=== PATIENT | male | born 1955 | race Caucasian/White ===

== ENCOUNTER 2018-01-25 14:18 | Observation (INO) ==
[2018-01-25] MEDS ORDERED: Naloxone 0.4 MG/ML INJ IVP PRN (17:26)
[2018-01-25] MEDS ORDERED: Acetaminophen 325 MG TABLET PO PRN (17:26)
[2018-01-25] MEDS ORDERED: traMADol 50 MG TABLET PO PRN (17:26)
[2018-01-25] MEDS ORDERED: Dextrose Gel 15 GM/37.5 ML TUBE PO PRN ×2 (17:29)
[2018-01-25] MEDS ORDERED: *HR* Dextrose 50 % in Water (Syg) 50 ML SYRINGE IVP PRN (17:29)
[2018-01-25] MEDS ORDERED: D5% in Water 1,000 ML IVC PRN (17:29)
[2018-01-25] MEDS ORDERED: Nitroglycerin 0.4 MG TAB.SUBL SL PRN (17:30)
--- NOTE | 2018-01-25 17:44 | Internal Med History&Physical ---
Date of Encounter: 01/25/18 Time of Encounter: 17:41 Internal Medicine - H&P: HPI Admitted From: Home Plans for Post Hospital Care: Home History of present illness: Mr. Hendrix is a 62 year old male with Hx of CAD s/p LAD stent placement presented with a 6 day history of left-sided anterior chest pain. Last night it began to radiate into the left axilla and then today to his left arm. He reports that it is not exertional and he cannot identify any exacerbating symptoms. He reports it occasionally is sharp. He has never had pain like this before. He reports that he has not had associated nausea or vomiting, no lightheadedness or sweats but reports profound fatigue and associated shortness of breath. He reports max pain was 7 out of 10 yesterday. Current pain is 3 out of 10. Patient reports he stopped Plavix at the recommendation of his wood car builder 2 months ago. He reports he is diabetic, is treated for high cholesterol, high blood pressure, takes baby aspirin daily. Nonsmoker. Denies history of arrhythmia. Patient sees Dr. Lopez. Had LAD stent placed 03-27-11 at [facility]. Upon arrival, patient has signs were stable. Labs and EKG were unremarkable. Due to his risk factors and the history was CAD, patient will be admitted as observation for further evaluation. Past Med Surg Social Fam HX - Past Medical History Medical history: arthritis, coronary artery disease, CVA, diabetes, GERD, hyperlipidemia, hypertension Additional medical history: neuropathy Psychiatric history: depression - Past Surgical History Surgical History: angioplasty/stent, sinus surgery Additional surgical history: neck surgery, heart stent, eye sx, sinus sx, vasectomy - Social History Smoking Status: Never smoker Smokeless Tobacco Status: No Alcohol use: none Drug use: none - Family History Brother Hx Family Endocrine Disorder: Yes Internal Medicine - H&P: Meds Amlodipine [Norvasc] 5 mg PO DAILY 03/30/15 [History] Gabapentin [Neurontin] 800 mg PO DAILY 03/30/15 [History] Insulin Glargine,Hum.rec.anlog [Lantus Solostar] 35 unit SQ BID 03/30/15 [ History] Metformin HCl [Fortamet] 1,000 mg PO BID 03/30/15 [History] Metoprolol [Lopressor] 12.5 mg PO DAILY 03/30/15 [History] Montelukast [Singulair] 10 mg PO DAILY 03/30/15 [History] Donepezil [Aricept] 10 mg PO HS 08/27/15 [History] BuPROPion XL (24 HR) [Wellbutrin Xl] 150 mg PO DAILY 11/03/15 [History] Ezetimibe [Zetia] 10 mg PO DAILY 11/03/15 [History] Nitroglycerin [Nitrostat] 0.4 mg SL PRN PRN 11/03/15 [History] Pravastatin Sodium [Pravachol] 10 mg PO Q2D 11/03/15 [History] Loratadine [Claritin] 10 mg PO DAILY 11/04/15 [History] Ondansetron ODT [Zofran ODT] 4 mg SL Q6HR PRN #7 tab.rapdis 11/07/15 [Rx] Pantoprazole Sodium [Protonix] 40 mg PO DAILY #28 tablet. 11/07/15 [Rx] Sucralfate [Carafate] 1 gm PO QIDAC #28 tablet 11/07/15 [Rx] Amoxicillin/Clavulanate [Augmentin] 875 mg PO BIDWM #19 tablet 08/11/17 [Rx] Cyclobenzaprine [Flexeril] 10 mg PO TID #9 tablet 01/08/18 [Rx] Aspirin [Lo-Dose Aspirin EC] 81 mg PO DAILY 01/25/18 [History] Clopidogrel [Plavix] 75 mg PO DAILY 01/25/18 [History] Cyanocobalamin (Vitamin B-12) [Vitamin B12] 1,000 mcg PO BID 01/25/18 [History] Donepezil [Aricept] 10 mg PO DAILY 01/25/18 [History] Empagliflozin [Jardiance] 10 mg PO DAILY 01/25/18 [History] Ferrous Sulfate [Iron] 325 mg PO DAILY 01/25/18 [History] Ranitidine HCl [Acid Automotive Title Clerk] 150 mg PO DAILY 01/25/18 [History] Venlafaxine HCl [Venlafaxine HCl ER] 37.5 mg PO DAILY 01/25/18 [History] 3 Allergy/AdvReac Type Severity Reaction Status Date / Time benazepril Allergy Rash Verified 01/08/18 11:58 codeine Allergy Rash Verified 01/08/18 11:58 fenofibrate Allergy Rash Verified 01/08/18 11:58 ropinirole [From Requip] Allergy Rash Verified 01/08/18 11:58 simvastatin [From Zocor] Allergy Rash Verified 01/08/18 11:58 TB serum Allergy See Uncoded 01/08/18 11:58 Comments All Systems PM: A 10-system review of systems was performed and is negative for pertinent findings except as documented above in the HPI. Review of systems: REVIEW OF SYSTEMS: CONSTITUTIONAL: No weight loss, fever, chills, weakness or fatigue. HEENT: Eyes: No visual loss, blurred vision, double vision or yellow sclerae. Ears, Nose, Throat: No hearing loss, sneezing, congestion, runny nose or sore throat. SKIN: No rash or itching. CARDIOVASCULAR: see HPI. RESPIRATORY: No shortness of breath, cough or sputum. GASTROINTESTINAL: No anorexia, nausea, vomiting or diarrhea. No abdominal pain or blood. GENITOURINARY: No dysuria, urgency, or frequency. NEUROLOGICAL: No headache, dizziness, syncope, paralysis, ataxia, numbness or tingling in the extremities. No change in bowel or bladder control. MUSCULOSKELETAL: No muscle, back pain, joint pain or stiffness. HEMATOLOGIC: No anemia, bleeding or bruising. LYMPHATICS: No enlarged nodes. No history of splenectomy. PSYCHIATRIC: No history of depression or anxiety. ENDOCRINOLOGIC: No reports of sweating, cold or heat intolerance. No polyuria or polydipsia. - Constitutional General appearance: Present: A&O X 3, answers questions appropriately Exam: PHYSICAL EXAMINATION: GENERAL APPEARANCE: The patient is alert, oriented and in no acute distress. HEENT: Head is normocephalic. The sinuses are nontender. Pupils are equal and reactive. The nares are patent. Oropharynx clear without lesions. NECK: Supple without lymphadenopathy. HEART: Regular rate and rhythm. LUNGS: No crackles or wheezes are heard. ABDOMEN: Soft, nontender, nondistended with good bowel sounds heard. Inguinal area is normal. EXTREMITIES: Without cyanosis, clubbing or edema. NEUROLOGICAL: Gross nonfocal. SKIN: Warm and dry without any rash. - Assessment and plan (1) Chest pain Current Visit: Yes Status: Acute Assessment and plan: 62-year-old male with past medical history of CAD, status post stent placement, hypertension, hyperlipidemia, diabetes, and a stroke presented with left-sided chest pain. He had 1 stent placed in LAD in 2010. Regularly follow up with cardiology Dr. Lopez. Recent cardiac workup in 2016 including echocardiogram and a stress nuclear test were unremarkable. He was taking both aspirin and the Plavix until 2 months ago, when Plavix was discontinued by cardiology. - First set of troponin was negative, EKG showed normal sinus rhythm with right bundle branch block, no acute ST-T changes. - Patient received aspirin and Nitrol. His symptoms has improved. - We will continue cycle troponin, telemetry monitoring, EKG as needed. - Echocardiogram and a stress nuclear test ordered. Qualifiers: Chest pain type: unspecified Qualified Code(s): R07.9 - Chest pain, unspecified (2) CAD (coronary artery disease) Current Visit: No Status: Chronic Assessment and plan: Continue medications including aspirin, metoprolol, statins. Qualifiers: Coronary Disease-Associated Artery/Lesion type: [place] artery [place] vs. transplanted heart: [place] heart Associated angina: without angina Qualified Code(s): I25.10 - Atherosclerotic heart disease of [place] coronary artery without angina pectoris (3) HTN (hypertension) Current Visit: No Status: Chronic Assessment and plan: BP was controlled, continue medications including Norvasc, and metoprolol. Qualifiers: Hypertension type: essential hypertension Qualified Code(s): I10 - Essential (primary) hypertension (4) Hyperlipidemia Current Visit: No Status: Chronic Assessment and plan: Repeat a lipid panel in the morning, continue statins. Qualifiers: Hyperlipidemia type: pure hypercholesterolemia Qualified Code(s): E78.00 - Pure hypercholesterolemia, unspecified; E78.0 - Pure hypercholesterolemia (5) Stroke Current Visit: No Status: Chronic Assessment and plan: Continue aspirin. Qualifiers: CVA mechanism: unspecified Qualified Code(s): I63.9 - Cerebral infarction, unspecified (6) DM (diabetes mellitus), type 2 Current Visit: No Status: Chronic Assessment and plan: Continue Coumadin basal insulin, hold all the oral agent for now, started patient on insulin sliding scale. Qualifiers: Diabetes mellitus detention insulin use: with terminal superintendent use Diabetes mellitus complication status: with unspecified complications Qualified Code(s) : E11.8 - Type 2 diabetes mellitus with unspecified complications; Z79.4 - custodial (current) use of insulin (7) GERD (gastroesophageal reflux disease) Current Visit: No Status: Chronic Assessment and plan: Continue home medications. Qualifiers: Esophagitis presence: without esophagitis Qualified Code(s): K21.9 - Gastro -esophageal reflux disease without esophagitis (8) DVT prophylaxis Current Visit: Yes Status: Acute Assessment and plan: Heparin subcutaneous. - Time Spent With Patient Total time spent is greater than 50% in coordination of care (as documented) at patient's floor/unit and/or counseling patient: Greater than 35 minutes
[2018-01-25] MEDS ORDERED: PRAVASTATIN SODIUM 10 MG PO SCH (17:45)
[2018-01-25] MEDS: *HR* Heparin 5,000 UNIT/ML VIAL SQ SCH (20:50)
[2018-01-25] MEDS: Insulin DETEMIR 100 UNIT/ML X5UNITS SQ SCH (20:54)
[2018-01-25] MEDS ORDERED: Insulin LISPRO 300 UNITS/3 ML VIAL SQ SCH (21:00)
[2018-01-25] MEDS: Gabapentin 400 MG CAPSULE PO SCH (22:11)
[2018-01-26 02:12] LABS: Basophils % 0.5 %; Eosinophils # 0.1 K/mcL (0.0-0.6); Eosinophils % 1.8 %; Hematocrit 42.7 % (37.5-50.1); Hemoglobin 14.3 g/dL (12.9-16.9); Immature Granulocytes % 0.2 % (0-4); Lymphocytes # 2.6 K/mcL (0.6-4.6); Lymphocytes % 42.5 %; Mean Corpuscular HGB Conc 33.5 g/dL (31.6-35.5); Mean Corpuscular Hemoglobin 30.6 pg (28.0-33.3); Mean Corpuscular Volume 91.4 fL (83.0-100.0); Mean Platelet Volume 11.8 fL (9.4-12.4); Monocytes # 0.4 K/mcL (0.0-1.3); Monocytes % 6.2 %; Platelet Count 185 K/mcL (140-400); Red Blood Count 4.67 M/mcL (4.19-5.50); Red Cell Distribution Width 12.8 % (11.5-14.5); Segmented Neutrophils % 48.8 %
[2018-01-26 02:27] LABS: BUN/Creatinine Ratio 22 (6-26); Blood Urea Nitrogen 23 mg/dL (8-23); Calcium 9.1 mg/dL (8.6-10.3); Carbon Dioxide 27 mEq/L (23-29); Chloride 106 mEq/L (98-107); Glucose 249 mg/dL (70-105); Osmolality,Calculated 300 (280-300); Potassium 3.7 mEq/L (3.5-5.1); Sodium 139 mEq/L (136-145); eGFR For Non-African Americans > 60 (> 60)
[2018-01-26] MEDS: *HR* Heparin 5,000 UNIT/ML VIAL SQ SCH (05:08)
[2018-01-26] MEDS ORDERED: Regadenoson 0.4 MG/5 ML SYRINGE IVP ONE (06:16)
[2018-01-26 07:07] LABS: Estimated Average Glucose 203 mg/dl; Hemoglobin A1C 8.7 %
[2018-01-26] MEDS ORDERED: Aspirin Enteric Coated 81 MG Tablet PO SCH (09:00)
[2018-01-26] MEDS ORDERED: Gabapentin 400 MG CAPSULE PO SCH (09:00)
[2018-01-26] MEDS ORDERED: amLODIPine 5 MG TABLET PO SCH (09:00)
[2018-01-26] MEDS ORDERED: BuPROPion XL (24 HR) 150 MG TABLET PO SCH (09:00)
[2018-01-26] MEDS ORDERED: (Ezetimibe [Zetia] 10 MG) PO SCH (09:00)
[2018-01-26] MEDS: Insulin LISPRO 300 UNITS/3 ML VIAL SQ SCH ×2 (09:13→12:20)
[2018-01-26] MEDS: Gabapentin 400 MG CAPSULE PO SCH (10:00)
[2018-01-26] MEDS: Insulin DETEMIR 100 UNIT/ML X5UNITS SQ SCH (10:01)
--- NOTE | 2018-01-26 15:34 | Discharge Summary ---
- NOTES TO OUTPATIENT PROVIDER Notes to Outpatient Provider: f/u with PCP within a week. f/u with Dr. Lopez ( cardiology) within a week. Orders not resulted at time of discharge: Pending orders 01/25/18 17:35 NM arben perf SPECT multi [NM] Routine Date of Encounter: 01/26/18 Time of Encounter: 15:28 - Discharge Diagnosis (1) Chest pain Priority: Primary Status: Inactive Qualifiers: Chest pain type: unspecified Qualified Code(s): R07.9 - Chest pain, unspecified (2) CAD (coronary artery disease) Priority: Secondary Status: Chronic Qualifiers: Coronary Disease-Associated Artery/Lesion type: [place] artery [place] vs. transplanted heart: [place] heart Associated angina: without angina Qualified Code(s): I25.10 - Atherosclerotic heart disease of [place] coronary artery without angina pectoris (3) HTN (hypertension) Priority: Secondary Status: Chronic Qualifiers: Hypertension type: essential hypertension Qualified Code(s): I10 - Essential (primary) hypertension (4) Hyperlipidemia Priority: Secondary Status: Chronic Qualifiers: Hyperlipidemia type: pure hypercholesterolemia Qualified Code(s): E78.00 - Pure hypercholesterolemia, unspecified; E78.0 - Pure hypercholesterolemia (5) Stroke Priority: Secondary Status: Chronic Qualifiers: CVA mechanism: unspecified Qualified Code(s): I63.9 - Cerebral infarction, unspecified (6) DM (diabetes mellitus), type 2 Priority: Secondary Status: Chronic Qualifiers: Diabetes mellitus termination clerk insulin use: with intermediate use Diabetes mellitus complication status: with unspecified complications Qualified Code(s) : E11.8 - Type 2 diabetes mellitus with unspecified complications; Z79.4 - terminal carman (current) use of insulin (7) GERD (gastroesophageal reflux disease) Priority: Secondary Status: Chronic Qualifiers: Esophagitis presence: without esophagitis Qualified Code(s): K21.9 - Gastro -esophageal reflux disease without esophagitis (8) DVT prophylaxis Priority: Primary Status: Acute Hospital course: Mr. Hendrix is a 62 year old male with Hx of CAD s/p LAD stent placement presented with a 6 day history of left-sided anterior chest pain. Last night it began to radiate into the left axilla and then today to his left arm. He reports that it is not exertional and he cannot identify any exacerbating symptoms. He reports it occasionally is sharp. He has never had pain like this before. Patient sees Dr. Lopez, his cardiology regularly, last was seen about 2 months ago, everything was OK per pt, he was also taken off Plavix after that visit. Had LAD stent placed 03-27-11 at [facility]. Upon arrival, patient has signs were stable. Labs and EKG were unremarkable. Troponin was negative 3. Patient undertook a stress nuclear test on 01/26/2018 , which was negative for ischemia. An echocardiogram showed normal ejection fraction, normal LV function and RV function. Patient pain has resolved after admission. He will be discharged home today. He was instructed to continue to take aspirin, statins, and other medication for CAD. He will follow-up with PCP and cardiology within a week. Discharge discussed with: patient Time spent discussing smoking cessation with patient: more than 10 minutes - Time Spent with Patient Total time spent providing and/or coordinating discharge services: Greater than 30 minutes - Discharge Medications Prescriptions: Gabapentin [Neurontin] 800 mg PO DAILY #60 capsule Home Medications: Amlodipine [Norvasc] 5 mg PO DAILY 03/30/15 [History] Metformin HCl [Fortamet] 1,000 mg PO BID 03/30/15 [History] Metoprolol [Lopressor] 12.5 mg PO DAILY 03/30/15 [History] Montelukast [Singulair] 10 mg PO DAILY 03/30/15 [History] Donepezil [Aricept] 10 mg PO DAILY 08/27/15 [History] BuPROPion XL (24 HR) [Wellbutrin Xl] 150 mg PO DAILY 11/03/15 [History] Pravastatin Sodium [Pravachol] 10 mg PO Q2D 11/03/15 [History] Pantoprazole Sodium [Protonix] 40 mg PO DAILY #28 tablet. 11/07/15 [Rx] Aspirin [Lo-Dose Aspirin EC] 81 mg PO DAILY 01/25/18 [History] Cyanocobalamin (Vitamin B-12) [Vitamin B12] 1,000 mcg PO DAILY 01/25/18 [History ] Ferrous Sulfate [Iron] 325 mg PO DAILY 01/25/18 [History] Ranitidine HCl [Acid Floor Clerk] 150 mg PO DAILY 01/25/18 [History] Buspirone HCl [Buspar] 15 mg PO DAILY 01/26/18 [History] Empagliflozin [Jardiance] 25 mg PO DAILY 01/26/18 [History] Fluticasone Propionate Nasal [Flonase] 1 spr NS DAILY 01/26/18 [History] Gabapentin [Neurontin] 800 mg PO DAILY #60 capsule 01/26/18 [Rx] Venlafaxine [Effexor] 25 mg PO DAILY 01/26/18 [History] glipiZIDE [Glucotrol] 5 mg PO DAILY 01/26/18 [History] Allergies/Adverse Reactions: 3 Allergy/AdvReac Type Severity Reaction Status Date / Time benazepril Allergy Rash Verified 01/08/18 11:58 codeine Allergy Rash Verified 01/08/18 11:58 fenofibrate Allergy Rash Verified 01/08/18 11:58 ropinirole [From Requip] Allergy Rash Verified 01/08/18 11:58 simvastatin [From Zocor] Allergy Rash Verified 01/08/18 11:58 TB serum Allergy See Uncoded 01/08/18 11:58 Comments Date of admission: 01/25/18 16:51 Primary care physician: Regi Davis CNP Anticipated date of discharge: 01/26/18 - Constitutional Vitals: Temp Pulse Resp BP Pulse Ox 97.8 F 63 16 113/70 98 01/26/18 11:09 01/26/18 11:09 01/26/18 11:09 01/26/18 11:09 01/26/18 11:09 General appearance: Present: A&O X 3, answers questions appropriately Exam: PHYSICAL EXAMINATION: GENERAL APPEARANCE: The patient is alert, oriented and in no acute distress. HEENT: Head is normocephalic. The sinuses are nontender. Pupils are equal and reactive. The nares are patent. Oropharynx clear without lesions. NECK: Supple without lymphadenopathy. HEART: Regular rate and rhythm. LUNGS: No crackles or wheezes are heard. ABDOMEN: Soft, nontender, nondistended with good bowel sounds heard. Inguinal area is normal. EXTREMITIES: Without cyanosis, clubbing or edema. NEUROLOGICAL: Gross nonfocal. SKIN: Warm and dry without any rash. - Patient Status Disposition: Home, Self-Care Condition: Good Functional capacity at discharge: independent ambulation Overall status at discharge: patient is progressing back to baseline - Discharge Instructions Follow Up With: Regi Davis CNP [Primary Care Provider] - (Requested a follow up appointment in 7-10 days. ) - Diet and Activity Activity: increase activity as tolerated Diet: diabetic diet, low fat, low cholesterol, low salt diet
[2018-01-26 16:00] VITALS: BP 112/64
[2018-01-27] MEDS ORDERED: Fluticasone Propionate Nasal 50 MCG/SPRAY BOTTLE NS SCH (09:00)
[2018-01-27] MEDS ORDERED: Cyanocobalamin (B-12) 1,000 MCG TABLET PO SCH (09:00)
== END 2018-01-26 17:00 | disposition home or self-care (01) ==
LOC: 3BNU
PROVIDERS: ADMIT Internal Medicine; ATTEND Internal Medicine